=== PATIENT | female | born 1940 | race Hispanic/Latino ===

== ENCOUNTER 2017-07-08 07:50 | Day surgery (SDC) | payer MEDICARE, OTHER ==
[2017-06-29 12:19] VITALS: BMI 26.7
[2017-07-08 08:21] VITALS: RESP 14
[2017-07-08] MEDS ORDERED: Propofol 10 mg/ml Inj (20 ML) ONE (09:26)
[2017-07-08] MEDS ORDERED: Sodium Chloride 0.9% 1,000 ML IV SCH (10:30)
[2017-07-08 11:28] VITALS: BP 141/74; PULSE 63; TEMP 97.4; O2SAT 97
== END 2017-07-08 11:46 | disposition home or self-care (01) ==
LOC: ENDO 07:50
PROVIDERS: ATTEND Internal Medicine Gastroenterology
DX: K29.50 Unspecified chronic gastritis without bleeding (principal); K21.9 Gastro-esophageal reflux disease without esophagitis; I85.00 Esophageal varices without bleeding; D50.9 Iron deficiency anemia, unspecified; I10 Essential (primary) hypertension
CPT/HCPCS: 43239; 88305; 88312; 88342; J2704; J7040 ×2

== ENCOUNTER 2018-11-26 13:43 | Emergency (ER) | payer MEDICARE, OTHER ==
[2018-11-26 13:43] VITALS: BMI 26.7
[2018-11-26 13:59] VITALS: BP 161/96; PULSE 86; RESP 18; TEMP 98.3; O2SAT 95
--- NOTE | 2018-11-26 15:43 | RAD ---
Date of service: 11/26/2018 PROCEDURE: Radiographs of the Chest and Right Ribs. HISTORY: posterior rib pain s/p slip fall COMPARISON: Chest radiograph dated 12/03/2016. TECHNIQUE: Frontal radiograph of the chest and multiple oblique radiographs of the right ribs were obtained. 4 views obtained. FINDINGS: RIGHT RIBS: Questionable nondisplaced fracture of the right posterior 10th rib. LUNGS: Clear. PLEURA: No pneumothorax or pleural fluid. CARDIOVASCULAR: Aortic atherosclerotic calcifications. Cardiomediastinal silhouette within normal limits. OTHER FINDINGS: None. IMPRESSION: Questionable nondisplaced fracture of the right posterior 10th rib. Correlation with the patient's site of pain is recommended. No pneumothorax.
--- NOTE | 2018-11-26 15:44 | RAD ---
PROCEDURE: Right Hip Radiographs. HISTORY: s/p slip fall r/o fx COMPARISON: None. TECHNIQUE: 2 views obtained. FINDINGS: BONES: No acute fracture. JOINTS: Normal. SOFT TISSUES: Normal. OTHER FINDINGS: None. IMPRESSION: No demonstrated fracture or dislocation.
--- NOTE | 2018-11-26 17:00 | ED PDOC ---
Arrival/HPI - General Chief Complaint: Back Pain Time Seen by Provider: 11/26/18 14:07 Historian: Patient - History of Present Illness Narrative History of Present Illness (Text): 11/26/18 16:58 A 78 year old female who presents to the ED complaining of back pain s/p fall. Patient reports she slipped on a bath adrián today, and fell backwards striking her right hip area on a door hinge. Patient did not hit her head or lose consci ousness. Patient denies any fevers, chills, headache, dizziness, chest pain, shortness of breath, dyspnea on exertion, cough, abdominal pain, nausea, vomiting, diarrhea, neck pain, urinary/bowel changes, or any other complaints. Time/Duration: Other (today) Symptom Onset: Gradual Symptom Course: Unchanged Activities at Onset: Light Context: Home Past Medical History - Provider Review Nursing Documentation Reviewed: Yes - Infectious Disease Hx of Infectious Diseases: None - Reproductive Menopause: No - Cardiac Hx Cardiac Disorders: Yes Hx Hypertension: Yes - Neurological Hx Paralysis: No - Hematological/Oncological Hx Blood Transfusions: No Hx Blood Transfusion Reaction: No - Integumentary Hx Dermatological Disorder: Yes Other/Comment: HX: LEFT BREAST TUMOR-BENIGN - Musculoskeletal/Rheumatological Hx Musculoskeletal Disorders: No - Gastrointestinal Hx Gastrointestinal Disorders: Yes Hx Esophageal Varices: Yes Hx Gastritis: Yes Hx Gastroesophageal Reflux: Yes Other/Comment: HX: BARRRETT'S ESOPHAGUS. HX: ESOPHAGEAL ULCER. HX: HIATAL HERNIA - Genitourinary/Gynecological Hx Genitourinary Disorders: Yes Other/Comment: HX: UTERINE PROLAPSE - Psychiatric Hx Emotional Abuse: No Hx Physical Abuse: No Hx Substance Use: No - Surgical History Other/Comment: breast surgery - Anesthesia Hx Anesthesia Reactions: Yes Hx Malignant Hyperthermia: No - Suicidal Assessment Feels Threatened In Home Enviroment: No Family/Social History - Physician Review Nursing Documentation Reviewed: Yes Family/Social History: No Known Family HX Smoking Status: Former Smoker Hx Alcohol Use: Yes (OCCASSIONAL WINE) Hx Substance Use: No Allergies/Home Meds Allergies/Adverse Reactions: Allergies Sulfa (Sulfonamide Antibiotics) Allergy (Intermediate, Verified 06/29/17 12:19) RASH Home Medications: Home Meds Medication Instructions Recorded Confirmed Docusate [Colace] 100 mg PO BID 06/05/12 11/26/18 Benazepril HCl [Lotensin] 20 mg PO QAM 08/30/16 11/26/18 Esomeprazole Magnesium [Nexium] 40 mg PO QAM 08/30/16 11/26/18 Simvastatin [Zocor] 20 mg PO QPM 08/30/16 11/26/18 amLODIPine [Norvasc] 10 mg PO QAM 08/30/16 11/26/18 Cholecalciferol (Vitamin D3) 1,000 unit PO QAM 12/24/16 11/26/18 [Vitamin D3] Doxylamine Succinate [Unisom Sleep 25 mg PO HS 12/27/16 11/26/18 Aid] Ranitidine HCl [Zantac] 150 mg PO QPM 12/27/16 11/26/18 Review of Systems - Physician Review All systems were reviewed & negative as marked: Yes - Review of Systems Constitutional: absent: Fatigue, Fevers Eyes: absent: Vision Changes ENT: absent: Hearing Changes Respiratory: absent: SOB, Cough Cardiovascular: absent: Chest Pain Gastrointestinal: absent: Abdominal Pain Genitourinary Female: absent: Dysuria, Hematuria Musculoskeletal: Back Pain Skin: absent: Rash Neurological: absent: Headache, Dizziness Endocrine: absent: Diaphoresis Hemo/Lymphatic: absent: Adenopathy Psychiatric: absent: Anxiety, Depression Physical Exam Vital Signs Reviewed: Yes Vital Signs Temp Pulse Resp BP Pulse Ox 11/26/18 14:10 98.3 F 86 18 161/96 H 95 11/26/18 13:53 98.3 F 86 18 161/96 H 95 Temperature: Afebrile Blood Pressure: Hypertensive Pulse: Regular Respiratory Rate: Normal Appearance: Positive for: Well-Appearing, Non-Toxic, Comfortable Pain Distress: Mild Mental Status: Positive for: Alert and Oriented X 3 - Systems Exam Head: Present: Atraumatic, Normocephalic Pupils: Present: PERRL Extroacular Muscles: Present: EOMI Conjunctiva: Present: Normal Respiratory/Chest: Present: Clear to Auscultation, Good Air Exchange. No: Respiratory Distress, Accessory Muscle Use Cardiovascular: Present: Regular Rate and Rhythm, Normal S1, S2. No: Murmurs Back: Present: Other (Tenderness at right posterior pelvic region.) Psychiatric: Present: Alert, Oriented x 3, Normal Insight, Normal Concentration Medical Decision Making ED Course and Treatment: 11/26/18 17:04 Impression: A 78 year old female who presents to the ED complaining of back pain s/p fall. Plan: -- Reassess and disposition Progress Notes: 11/26/18 17:33 Hip/Pelvis X-Ray IMPRESSION: No demonstrated fracture or dislocation. Ribs X-Ray IMPRESSION: Questionable nondisplaced fracture of the right posterior 10th rib. Correlation with the patient's site of pain is recommended. No pneumothorax. - RAD Interpretation Radiology Orders: 11/26/18 14:21 RIBS RIGHT & PA CHEST [RAD] Stat 11/26/18 14:22 Hip Right [HIP MIN 2V W/ PELVIS RT] [RAD] Stat - Scribe Statement The provider has reviewed the documentation as recorded by the Astridibe Lulú Chase Provider Scribe Attestation: All medical record entries made by the Scribe were at my direction and personally dictated by me. I have reviewed the chart and agree that the record accurately reflects my personal performance of the history, physical exam, medical decision making, and the department course for this patient. I have also personally directed, reviewed, and agree with the discharge instructions and disposition. Disposition/Present on Arrival - Present on Arrival Any Indicators Present on Arrival: No History of DVT/PE: No History of Uncontrolled Diabetes: No Urinary Catheter: No History of Decub. Ulcer: No History Surgical Site Infection Following: None - Disposition Have Diagnosis and Disposition been Completed?: Yes Diagnosis: Rib contusion, Contusion, hip Disposition: HOME/ ROUTINE Disposition Time: 15:20 Condition: GOOD Discharge Instructions (ExitCare): Hip Pointer (DC), Bruised Rib (DC) Additional Instructions: SHIRLEY KELLY, thank you for letting us take care of you today. The emergency medical care you received today was directed at your acute symptoms. If you were prescribed any medication, please fill it and take as directed. It may take several days for your symptoms to resolve. Return to the Emergency Department if your symptoms worsen, do not improve, or if you have any other problems. Please contact your doctor or call one of the physicians/clinics you have been referred to that are listed on the Patient Visit Information form that is included in your discharge packet. Bring any paperwork you were given at discharge with you along with any medications you are taking to your follow up visit. Our treatment cannot replace ongoing medical care by a primary care provider outside of the emergency department. Thank you for allowing the [facility] team to be part of your care today. Follow up with your primary care doctor if you have any concerns. Good luck in AC! Referrals: Vasiliy Montague MD [Primary Care Provider] - Follow up with primary Forms: [employer] ([place])
== END 2018-11-26 15:35 | disposition home or self-care (01) ==
LOC: ED 13:43
DX: S70.00XA Contusion of unspecified hip, initial encounter (principal); S20.219A Contusion of unspecified front wall of thorax, initial encounter; W01.198A Fall on same level from slipping, tripping and stumbling with subsequent striking against other object, initial encounter